=== PATIENT | female | born 1945 | race Caucasian/White ===

== ENCOUNTER 2019-07-08 13:11 | Inpatient (IN) | payer OTHER ==
[~2019-07-08] VITALS: Ht 167.6 cm; Wt 93.3 kg
[2019-07-08] VITALS (21 sets, daily range): BP systolic 81–118; BP diastolic 38–70
[2019-07-08] MEDS ORDERED: LOPRESSOR25 PO (14:11)
[2019-07-08] MEDS ORDERED: SPIRONOLACTONE25 MG PO (14:12)
[2019-07-08] MEDS ORDERED: NORVASC5 MG PO (14:12)
[2019-07-08] MEDS ORDERED: LOSARTAN POTAS100 MG PO (14:13)
[2019-07-08] MEDS ORDERED: ASA81BEC PO (14:14)
[2019-07-08] MEDS ORDERED: LOVASTATIN 20 M20 MG PO (14:15)
[2019-07-08] MEDS ORDERED: POTASSIUM CHLO20 ME2 PO (14:17)
[2019-07-08 14:18] LABS: ABSOLUTE NEUTROPHILS 11.1 thou/uL (1.4-8.2); BASOPHILS 0.5 % (0.0-2.0); EOSINOPHILS 0.3 % (0.0-3.0); LYMPHOCYTES 16.7 % (24.0-44.0); MCH 33.1 pg (26.0-34.0); MCHC 33.6 g/dL (28.0-37.0); MCV 98.5 fL (80.0-100.0); MONOCYTES 6.1 % (1.0-8.0); POLYS 76.4 % (36.0-66.0); RBC 1.98 mil/uL (4.20-5.00); RDW 12.9 % (10.5-14.5); WBC 14.5 thou/uL (4.0-11.0)
[2019-07-08] MEDS ORDERED: WARFARIN SODIUM5 MG PO (14:18)
[2019-07-08] MEDS ORDERED: MEVACOR10 MG PO (14:21)
[2019-07-08 14:22] LABS: HEMATOCRIT 19.5 % (37.0-47.0)
[2019-07-08] MEDS ORDERED: TAMBOCOR 100 M100 M1 PO (14:22)
[2019-07-08 14:23] LABS: HEMOGLOBIN 6.6 gm/dL (12.0-15.0)
[2019-07-08 14:24] LABS: CALCIUM 9.3 mg/dL (8.5-10.1); POTASSIUM 4.7 mmol/L (3.5-5.1)
[2019-07-08 14:31] LABS: ALBUMIN 2.9 g/dL (3.4-5.0); APTT 33.9 Seconds (24.5-32.8); PROTIME 47.5 Seconds (9.3-11.4); TOTAL BILIRUBIN 0.2 mg/dL (<0.1-1.0); TOTAL PROTEIN 5.5 g/dL (6.4-8.2)
[2019-07-08 14:36] LABS: INR 4.6
[2019-07-08 14:47] LABS: LARGE PLATELETS RARE; PLATELET COUNT 142 thou/uL (150-400)
[2019-07-08 22:18] LABS: HEMATOCRIT 21.7 % (37.0-47.0); HEMOGLOBIN 7.3 gm/dL (12.0-15.0)
[2019-07-09] VITALS (31 sets, daily range): BP systolic 80–137; BP diastolic 39–89
[2019-07-09 00:48] LABS: HEMATOCRIT 20.9 % (37.0-47.0); HEMOGLOBIN 7.1 gm/dL (12.0-15.0); MCH 32.9 pg (26.0-34.0); MCV 96.8 fL (80.0-100.0); RBC 2.16 mil/uL (4.20-5.00); RDW 13.4 % (10.5-14.5); WBC 10.7 thou/uL (4.0-11.0)
[2019-07-09 01:12] LABS: PROTIME 14.7 Seconds (9.3-11.4)
[2019-07-09 01:20] LABS: INR 1.4
--- NOTE | 2019-07-09 07:48 | NUR ---
ASSUME CARE 1900. PATIENT/VITALS STABLE. DENIES ANY PAIN. UP WITH STB ASSIST. TOLERATES ACTIVITY WELL. ASSESSMENT CHARTED. PROGREWSSING WELL WITH POC. ONE UNIT BLOOD TRANSFUSED/HGB 7.5. FFP NOT GIVEN BECAUSE VIT K WAS ALREADY GIVEN AND REPEAT INR WAS AT 1.4. HELD AFTER DISCUSSING WITH NON PROFIT JOB TITLES. 1 TARRY STOOL NOTED THROUGH SHIFT. NO DISTTRESS NOTED. PLAN IS FOR POSSIBLE EGD TODAY. WILL CONTINUE TO MONITOR AND FOLLOW WITH POC
--- NOTE | 2019-07-09 11:43 | P ---
[facility] [place] [address] PROCEDURE REPORT Name: DILLON MARTINEZ Room #: 244-P ADM IN M.R.#: [id number] Admission: 07/08/19 Attend Phys: Valeri Garcia Discharge: Date of : 47 Report #: [id number] THIS REPORT FOR: cc: Bello Johnston MD, Michael B. MD McElhinney, Christian C. MD ~ CC: Alber Johnston MD DATE OF SERVICE: 07/09/2019 PROCEDURE PERFORMED: Upper endoscopy. HISTORY OF PRESENT ILLNESS: The patient is a 74-year-old female with recent generalized weakness, diarrhea, black stools, has been on aspirin and Coumadin for history of AFib. INR on admission was 4.6. The patient was given vitamin K in the ER yesterday. INR today is 1.4. Her hemoglobin on admission was 6.6. She received 1 unit of packed cells. Her hemoglobin today is 7.1. The patient also had an elevated BUN of 63 yesterday. She denies any abdominal pain. No hematemesis. No previous history of GI bleed. Reportedly had a colonoscopy in the last 5-7 years that was negative. Plan is for upper endoscopy. DESCRIPTION OF PROCEDURE: The risks and benefits of the procedure were explained to the patient, those risks including but not limited to bleeding, perforation and the risk of sedation. She understood these risks and gave informed consent. Sedation was given using propofol per anesthesia. Next, using a standard Olympus upper endoscope, the scope was placed in the patient's mouth and advanced under direct vision through the esophagus, stomach and into the second portion of the duodenum. The larynx was normal in appearance. The esophagus was normal throughout. The GE junction was normal. A medium to large size hiatal hernia was noted on entering the stomach. There were several Juan Antonio erosions, but no evidence of ulcers or bleeding within the hiatal hernia. In the gastric antrum, there was a mild gastritis. There was a single 4 mm clean white based ulcer. No evidence of a visible vessel. There was no evidence of blood or old blood throughout the exam today. This is a possible recent bleeding site. There were several small erosions also noted. The pylorus was normal and patent. The duodenal bulb, first and second portion were all normal. I advanced the scope as far as possible. No obvious AVMs or blood or ulcerations were noted in the duodenum. At this point, the scope was then withdrawn and the procedure terminated. The patient tolerated the procedure well. IMPRESSION: [facility] [address] [place] [address] PROCEDURE REPORT Name: DILLON MARTINEZ Room #: 244-P [facility] IN M.R.#: [id number] Admission: 07/08/19 Attend Phys: Valeri Garcia Discharge: Date of : 46 Report #: [id number] 1. Antral ulcer with gastritis, suspect this may be the site of recent bleeding. Again, there was no evidence of old blood or visible vessel or bleeding at this time, especially as the patient's INR was supratherapeutic at 4.6. 2. Medium sized to large hiatal hernia. 3. Juan Antonio erosions. No signs of bleeding. RECOMMENDATIONS: Observe the patient and continue to monitor hemoglobin closely. If there are signs of further bleeding, consider a nuclear tagged bleeding scan. We will continue to hold aspirin and Coumadin at this time. We will also check stool for H. pylori antigen. Thank you for allowing me to participate in her care. <ELECTRONICALLY SIGNED> By: Alber Garcia MD 07/09/19 1143 1014 1136 Alber Garcia MD /nt
--- NOTE | 2019-07-09 11:43 | HC ---
[facility] [place] [address] CONSULTATION Name: DILLON MARTINEZ Room #: 244-P [facility] IN M.R.#: [id number] Admission: 07/08/19 Attend Phys: Valeri Garcia Discharge: Date of : 46 Report #: [id number] THIS REPORT FOR: cc: Bello Johnston MD, Michael B. MD McElhinney, Christian C. MD ~ CC: Alber Johnston MD DATE OF SERVICE: 07/09/2019 HISTORY OF PRESENT ILLNESS: The patient is a 74-year-old female began noticing diarrhea several days ago, black stools and over the last 2-3 days, she is on aspirin and Coumadin for history of AFib. No previous history of GI bleed. No previous history of upper endoscopy. Last colonoscopy was approximately 5-7 years ago and reportedly negative. She denies any abdominal pain, but has noticed some increased belching and gas. She has been taking Gas-X on a p.r.n. basis. Denies any heartburn symptoms or dysphagia. She does not take antacids on a regular basis. No nausea or vomiting. No fevers or chills. No cough recently. She was feeling weak in general, especially walking upstairs. On admission, the patient had a hemoglobin of 6.6. Her INR on admission was 4.6. In the Emergency Room, she was hypotensive. She was given IV fluids. She was given vitamin K and the patient received 1 unit of packed red blood cells yesterday. Her hemoglobin after that was 7.3 and 7.1 today. She currently denies any chest pain or shortness of breath. PAST MEDICAL HISTORY: Atrial fibrillation, hypertension. MEDICATIONS ON ADMISSION: Metoprolol, Norvasc, spironolactone, losartan, potassium chloride, Coumadin 5 mg, Mevacor, flecainide, aspirin 81 mg. ALLERGIES: To SULFA. FAMILY HISTORY: Negative for colon cancer. SOCIAL HISTORY: She denies any tobacco or alcohol use. REVIEW OF SYSTEMS: As per HPI. PHYSICAL EXAMINATION: VITAL SIGNS: Temperature is 36.9, pulse 86, blood pressure 111/55, respiratory rate is 15. GENERAL: She is alert and oriented x 3, in no acute distress. [address] [address] CONSULTATION Name: DILLON MARTINEZ Room #: 244-P [facility] IN M.R.#: [id number] Admission: 07/08/19 Attend Phys: Valeri Garcia Discharge: Date of : 46 Report #: [id number] HEENT: Sclerae nonicteric. Oropharynx clear. NECK: Supple, without lymphadenopathy. CARDIOVASCULAR: Regular rate and rhythm. CHEST: Clear to auscultation bilaterally. ABDOMEN: Soft. She is nontender, nondistended, normoactive bowel sounds. EXTREMITIES: No cyanosis, clubbing or edema. LABORATORY DATA: WBC 10.7; hemoglobin is 7.1, that is after 1 unit of packed cells yesterday; platelet count is 132. INR today is 1.4. Again, the patient was given vitamin K yesterday in the Emergency Room. Electrolytes, this was yesterday, sodium 131, potassium 4.7, chloride 101, bicarbonate 22, BUN 63, creatinine 1.0, magnesium 1.6, AST 18, ALT 21, alkaline phosphatase 41, total protein 5.5, albumin 2.9. ASSESSMENT AND PLAN: Anemia, gastrointestinal bleed. The patient with melanotic type stools recently. She has been on aspirin and Coumadin. INR was over 4 on admission, now 1.4 at this time. Would recommend proceeding with an upper endoscopy today. Continue PPI therapy and monitoring hemoglobin closely. I will make further recommendations after endoscopy. Thank you for allowing me to participate in her care. <ELECTRONICALLY SIGNED> By: Alber Garcia MD 07/09/19 1143 1010 1132 Alber Garcia MD /nt
[2019-07-09 20:45] LABS: HEMOGLOBIN 6.6 gm/dL (12.0-15.0)
[2019-07-09 20:46] LABS: HEMATOCRIT 19.6 % (37.0-47.0)
[2019-07-10] VITALS (13 sets, daily range): BP systolic 87–137; BP diastolic 35–80
[2019-07-10 03:41] LABS: HEMATOCRIT 21.8 % (37.0-47.0); HEMOGLOBIN 7.5 gm/dL (12.0-15.0); MCH 33.1 pg (26.0-34.0); MCHC 34.5 g/dL (28.0-37.0); MCV 96.1 fL (80.0-100.0); RBC 2.27 mil/uL (4.20-5.00); RDW 13.2 % (10.5-14.5); WBC 12.5 thou/uL (4.0-11.0)
--- NOTE | 2019-07-10 05:01 | NUR ---
SLEPT PART OF SHIFT. UP TO COMODE WITH STANDBY ASSIST. STATES IS WEAK BUT NOT DIZZY ANY MORE. HGB 6.6 LAST NOC AND RECIEVED 1 UNIT PRBC, HGB NOW 7.5. HAD HEADACHE AND NAUSEA WITH MEDICATIONS GIVEN WITH NOTED RELIEF. VSS. PT WITH HISTORY AFIB AND WENT INTO AFIB AT 2315. ORDERS FOR EXTRA DOSE FLECANIDE GIVEN PATIENT CONVERTED BACK TO SR/ST WITH 1AVB. PROGRESSING SLOWLY TOWARDS DISCHARGE GOALS. WORKING ON GOALS AND PLAN OF CARE FOR NOC. CONTINUE TO ASSES CLOSELY.
--- NOTE | 2019-07-10 08:16 | NUR ---
PT TRANSFERED TO ROOM 212 VIA WHEEL CHAIR. REPORT GIVEN TO RAOUL RODRIGES TO ASSUME CARE. TRANSFERED WITH ALL BELONGINGS. NO ISSUES OR CONERNS NOTED AT THIS TIME
--- NOTE | 2019-07-10 13:01 | EKG ---
[facility] [place] [address] ELECTROCARDIOGRAM REPORT Name: DILLON MARTINEZ Room #: 212- ADM IN M.R.#: [id number] Admission: 07/08/19 Attend Phys: Valeri Garcia Discharge: Date of : 46 Report #: [id number] THIS REPORT FOR: cc: Bello Johnston MD, Michael B. MD Couchonnal, Luis F. MD ~ THIS REPORT FOR: //name// [facility] ED Test Date: 2019-07-08 Test Time: 13:41:26 Pat Name: DILLON MARTINEZ Department: Room: [facility] Gender: F Behavioral Health Associate: BENITO : 1945 Requested By: Loly Cook Order Number: [id number] : Thuan Dang Measurements Intervals [place] Rate: 76 P: 20 UT: 177 QRS: -1 QRSD: 92 T: 12 QT: 403 QTc: 454 Interpretive Statements Sinus rhythm Atrial premature complexes Nonspecific T abnormalities, anterior leads Compared to ECG 10/20/2006 07:41:43 Atrial premature complex(es) now present T-wave abnormality now present First degree AV block no longer present Electronically Signed On 07-10-2019 12:59:51 CDT by Thuan Dang [email or web address] <ELECTRONICALLY SIGNED> By: Thuan Dang MD 07/10/19 1259 1341 1341 Thuan Dang MD /EPI
--- NOTE | 2019-07-10 17:14 | NUR ---
PT CARE ASSUMED APPROX 0830. ASSESSMENTS CHARTED. DENIES PAIN AND SOA. VSS. UP WITH STEADY GAIT. DENIES QUESTIONS OR CONCERNS REGARDING POC. TOLERATING POC. NO DISTRESS NOTED.
[2019-07-10 21:53] LABS: HEMATOCRIT 20.9 % (37.0-47.0); HEMOGLOBIN 7.1 gm/dL (12.0-15.0)
[2019-07-11 03:16] VITALS: BP 130/65
[2019-07-11 05:56] LABS: HEMOGLOBIN 7.1 gm/dL (12.0-15.0); MCH 33.5 pg (26.0-34.0); MCV 98.7 fL (80.0-100.0); RBC 2.13 mil/uL (4.20-5.00); RDW 13.7 % (10.5-14.5); WBC 8.6 thou/uL (4.0-11.0)
[2019-07-11 06:17] LABS: INR 1.1; PROTIME 10.8 Seconds (9.3-11.4)
--- NOTE | 2019-07-11 07:22 | NUR ---
ASSESSMENTS CHARTED, MEDS CHARTED GIVEN. PATIENT RESTING IN BED DURING SHIFT. ALERT AND ORIENTED, SINUS RHYTHM WITH PAC'S. 2/2 PULSES, NO EDEMA, LUNGS ARE CLEAR ON ROOM AIR. ON REGULAR DIET. NORMALLY HAS REGULAR BOWEL MOVEMENTS, BUT HAS TRIED SEVERAL TIMES WHILE HERE WITHOUT SUCCESS. UP AT BELLE IN ROOM. NO SKIN ISSUES, C/O HEADACHE AND NAUSEA DURING SHIFT. PLAN IS TO POSSIBLY GO HOME TODAY AND HAVE A COLONOSCOPY AN OUTPATIENT IF LAB HGB IS MAINTAINED. FALL PRECAUTIONS IN PLACE DURING SHIFT.
[2019-07-11 08:00] VITALS: BP 95/62
[2019-07-11] MEDS ORDERED: CARAFATE 1 GM TA1 G1 PO (08:29)
[2019-07-11] MEDS ORDERED: PROTONIX 20 MG20 M1 PO (08:29)
[2019-07-11 13:00] VITALS: BP 103/51
--- NOTE | 2019-07-11 15:05 | NUR ---
ASSUMED CARE AT SHIFT CHANGE, ASSESSMENT DOCUMENTED. MEDS NOT GIVEN FOR LOW PULS/BP THIS AM. C/O HEADACHE, MEDICATED NEEDED AND PATIENT REPORT RELIEFE. AND WILL CONTIUE WITH POC.
[2019-07-11 16:00] VITALS: BP 123/51
[2019-07-11 20:19] VITALS: BP 136/77
--- NOTE | 2019-07-11 21:22 | NUR ---
CARE TAKEN OVER AT 1900. PT ASSESSED AT 1999, VSS, MEDS GIVEN, PT COMPLETED HER BOWEL PREP FOR COLONOSCOPY TOMORROW. ASKED QUESTIONS ABOUT THE PROCEDURE AND VERBALIZED UNDERSTANDING. WILL TRANSFER TO ROOM 443 WHEN NURSE IS AVAILABLE.
[2019-07-11 22:50] VITALS: BP 126/55
[2019-07-12 04:27] VITALS: BP 125/70
--- NOTE | 2019-07-12 05:04 | NUR ---
Pt transferred from @2245 via WC. A/OX4, VSS. Pt's up ad murray w/o problems encouraged to call for help as needed. Pt completed bowel prep before transfer and still having light yellow loose stools at this time. C/o of a headache, medicated with Tylenol with relief reported. Pt has been NPO since midnight. No bleeding reported. IVF infusing via RFA w/o problems. Pt does have a cough, reports yellow phlegm at times but not observed. Call light/personal items placed within reach, resting w/o distress will continue to monitor pt.
[2019-07-12 07:23] VITALS: BP 118/60
[2019-07-12 10:40] VITALS: BP 113/65
[2019-07-12 10:53] LABS: CALCIUM 8.4 mg/dL (8.5-10.1); CREATININE 0.6 mg/dL (0.6-1.0); POTASSIUM 3.3 mmol/L (3.5-5.1)
[2019-07-12 12:51] VITALS: BP 113/65
--- NOTE | 2019-07-12 13:49 | NUR ---
Assumed care of pt at 0700. Pt a&ox4. Denies pain. Had colonoscopy procedure. Pt discharging home. No complaints. Vital signs stable.
--- NOTE | 2019-07-13 08:27 | P ---
[facility] [address] [place] [address] PROCEDURE REPORT Name: DILLON MARTINEZ Room #: 443-P [facility] IN M.R.#: [id number] Admission: 07/08/19 Attend Phys: Valeri Garcia Discharge: 07/12/19 Date of : 46 Report #: [id number] THIS REPORT FOR: cc: Bello Johnston MD, Michael B. MD Thesing, John A. MD ~ CC: Alber Johnston INPATIENT COLONOSCOPY REPORT BRIEF HISTORY: The patient is a 74-year-old woman who was admitted to [facility] with evidence of GI bleeding. She had been on anticoagulation. Source of bleeding is not certain. PREOPERATIVE DIAGNOSIS: Gastrointestinal bleeding, uncertain etiology. POSTOPERATIVE DIAGNOSIS: Normal colonoscopy. MEDICATIONS: Deep sedation with propofol per anesthesia. SPECIMEN: None. ESTIMATED BLOOD LOSS: None. PROCEDURE: Colonoscopy to cecum and terminal ileum. FINDINGS: Prior to propofol sedation, procedure of colonoscopy was discussed with the patient as well as potential risks, benefits, and complications. She indicates she understands and desires to proceed. DESCRIPTION OF PROCEDURE: With the patient in left lateral decubitus position, digital examination was completed. Her vaginal pessary was palpable. No other abnormalities were noted. Subsequently, the Olympus video colonoscope was introduced into the rectum, advanced under direct vision to the cecum. This was done with minimal difficulty. The cecum was identified by the ileocecal valve and the appendiceal orifice. I was able to visualize the distal segment of terminal ileum, which was inspected and noted to be unremarkable. At that point, the scope was slowly withdrawn and careful circumferential views were obtained. The prep was good, the mucosa within normal limits, normal vascular pattern, normal light reflex. As we withdrew the scope, no bleeding sites were identified. No blood was seen in her colon. She had a normal endoscopic examination of her entire colon. Vascular ectasias were not seen. Diverticular disease was not seen. Neoplastic lesions were not seen. No abnormalities were identified in her colon today. Upon retroflexion, no abnormalities were seen. Scope was withdrawn. The patient tolerated the procedure well. [facility] [address] [place] [address] PROCEDURE REPORT Name: DILLON MARTINEZ Room #: 443-P [facility] IN M.R.#: [id number] Admission: 07/08/19 Attend Phys: Valeri Garcia Discharge: 07/12/19 Date of : 46 Report #: [id number] DISPOSITION: Source of bleeding was not identified. She did have some Juan Antonio erosions on her upper endoscopy, which may have been the source of blood loss. She also had a supratherapeutic INR on her warfarin. We will discuss further with the patient. Discharge at this point would be reasonable. M2 capsule study may be reasonable as well. Again, we will discuss further with the patient. Also, in view of negative exam, I suggest followup colon exam in 10 years. <ELECTRONICALLY SIGNED> By: Mike Hanks MD 07/13/19 0827 1006 1134 Mike Hanks MD /nt
== END 2019-07-12 13:52 | disposition home or self-care (01) | DRG 813 ==
LOC: ER 13:11 → EROBS 15:37 → 2N 15:37 → ICU 16:37 → 2N 07-10 09:39 → 4S 07-11 23:00
PROVIDERS: Specialist; Student in an Organized Health Care Education/Training Program; ADMIT Hospitalist
PROC: 30233N1 Transfusion of Nonautologous Red Blood Cells into Peripheral Vein, Percutaneous Approach (ICD-10-PCS; principal; 2019-07-09)
PROC: 0DJ08ZZ Inspection of Upper Intestinal Tract, Via Natural or Artificial Opening Endoscopic (ICD-10-PCS; principal; 2019-07-09)
PROC: 0DJD8ZZ Inspection of Lower Intestinal Tract, Via Natural or Artificial Opening Endoscopic (ICD-10-PCS; principal; 2019-07-09)
DX: D68.32 Hemorrhagic disorder due to extrinsic circulating anticoagulants (principal); K29.01 Acute gastritis with bleeding; R57.8 Other shock; K26.4 Chronic or unspecified duodenal ulcer with hemorrhage; D62 Acute posthemorrhagic anemia; D68.9 Coagulation defect, unspecified; I10 Essential (primary) hypertension; I95.9 Hypotension, unspecified; K44.9 Diaphragmatic hernia without obstruction or gangrene; I48.91 Unspecified atrial fibrillation; Z79.01 Long term (current) use of anticoagulants; Z79.899 Other long term (current) drug therapy; Z79.82 Long term (current) use of aspirin; Z88.2 Allergy status to sulfonamides; T45.515A Adverse effect of anticoagulants, initial encounter; Y92.89 Other specified places as the place of occurrence of the external cause
CPT/HCPCS: 10078; 10081; 10102; 62110; 62900; 70005; 85076

== ENCOUNTER 2020-05-29 17:52 | Inpatient (IN) | payer OTHER ==
[~2020-05-29] VITALS: Ht 167.6 cm; Wt 91.0 kg
[~2020-05-29 17:52] MED LIST: ASA81BEC PO; CARAFATE 1 GM TA1 G1 PO; LOPRESSOR25 PO; LOSARTAN POTAS100 MG PO; LOVASTATIN 20 M20 MG PO; MEVACOR10 MG PO; NORVASC5 MG PO; POTASSIUM CHLO20 ME2 PO; PROTONIX 20 MG20 M1 PO; SPIRONOLACTONE25 MG PO; TAMBOCOR 100 M100 M1 PO; WARFARIN SODIUM5 MG PO
[2020-05-29 17:53] VITALS: BP 117/55
[2020-05-29 18:27] LABS: ABSOLUTE NEUTROPHILS 3.9 thou/uL (1.4-8.2); BASOPHILS 0.8 % (0.0-2.0); EOSINOPHILS 2.2 % (0.0-3.0); HEMATOCRIT 40.2 % (37.0-47.0); HEMOGLOBIN 13.4 gm/dL (12.0-15.0); LYMPHOCYTES 25.5 % (24.0-44.0); MCH 32.5 pg (26.0-34.0); MCHC 33.2 g/dL (28.0-37.0); MCV 97.7 fL (80.0-100.0); POLYS 61.5 % (36.0-66.0); RBC 4.12 mil/uL (4.20-5.00); RDW 12.7 % (10.5-14.5); WBC 6.3 thou/uL (4.0-11.0)
[2020-05-29 18:45] LABS: CALCIUM 9.2 mg/dL (8.5-10.1); CREATININE 0.8 mg/dL (0.6-1.0); POTASSIUM 4.4 mmol/L (3.5-5.1)
[2020-05-29 18:46] LABS: INR 4.2; PROTIME 43.6 Seconds (9.3-11.4)
[2020-05-29 18:50] LABS: ALBUMIN 3.7 g/dL (3.4-5.0); TOTAL BILIRUBIN 0.2 mg/dL (0.2-1.0); TOTAL PROTEIN 7.2 g/dL (6.4-8.2)
[2020-05-29 19:11] LABS: PLATELET COUNT 185 thou/uL (150-400)
[2020-05-29 19:50] VITALS: BP 127/67
[2020-05-29 20:43] VITALS: BP 114/67
[2020-05-29 21:05] VITALS: BP 118/63
[2020-05-29] MEDS ORDERED: WARFARIN SODIUM5 MG PO (22:30)
[2020-05-29] MEDS ORDERED: WARFARIN SODIU2.5 MG PO (22:31)
--- NOTE | 2020-05-30 00:29 | NUR ---
Pt admitted from ED at 2100 with GIB. A/OX4,VSS. Denies pain on assessment. Up ad murray in room,fall safety reinforced and pt agrees to call for help as needed. Denies N/V,pt is belching. Just had a large loose BM black/green in color. Pt's NPO from midnight. IVF infusing,will continue to monitor pt.
[2020-05-30 04:00] VITALS: BP 123/64
[2020-05-30 05:07] LABS: HEMATOCRIT 39.5 % (37.0-47.0); HEMOGLOBIN 13.1 gm/dL (12.0-15.0); MCH 32.7 pg (26.0-34.0); MCHC 33.2 g/dL (28.0-37.0); MCV 98.6 fL (80.0-100.0); RBC 4.01 mil/uL (4.20-5.00); RDW 12.6 % (10.5-14.5); WBC 6.3 thou/uL (4.0-11.0)
[2020-05-30 05:10] LABS: CALCIUM 9.4 mg/dL (8.5-10.1); CREATININE 0.9 mg/dL (0.6-1.0); POTASSIUM 4.5 mmol/L (3.5-5.1)
[2020-05-30 06:10] VITALS: BP 116/68
--- NOTE | 2020-05-30 07:17 | EKG ---
[place] [address] [facility] [place] [address] ELECTROCARDIOGRAM REPORT Name: DILLON MARTINEZ Room #: 454-P ADM IN M.R.#: [id number] Admission: 05/29/20 Attend Phys: Vel Leonardo MD Discharge: Date of : 46 Report #: [id number] [facility] ED Test Date: 2020-05-29 Test Time: 18:26:34 Pat Name: DILLON MARTINEZ Department: Room: 454 Gender: F Personal Assistant: Dawson : 1945 Requested By: Alvarado Justice Order Number: [id number] MD: Norberto Cortez Measurements Intervals [place] Rate: 56 P: 18 [place]: 221 QRS: -16 QRSD: 99 T: 6 QT: 427 QTc: 413 Interpretive Statements Sinus rhythm Atrial premature complexes Prolonged WA interval Abnormal R-wave progression, early transition Probable left ventricular hypertrophy Baseline wander in lead(s) III Compared to ECG 07/08/2019 13:41:26 First degree AV block now present T-wave abnormality no longer present Electronically Signed On 05-30-2020 7:17:32 BOOKKEEPING SERVICE SALES AGENT by Norberto Cortez [email or web address] <ELECTRONICALLY SIGNED> By: Norberto Cortez MD, FAC 05/30/20 0717 1826 182 Norberto Cortez MD, [facility] /EPI
[2020-05-30 07:32] VITALS: BP 119/54
--- NOTE | 2020-05-30 12:21 | NUR ---
PT ADMITTED RELATED TO GIB. CM REVIEWED CHART AND SPOKE WITH CARE TEAM. CM CALLED AND SPOKE WITH PT OVER THE PHONE THIS DAY. PT APPEARED TO BE A&O X4. CM ROLE INTRODUCED. PT INDICATED SHE RESIDES IN AN APARTMENT WITH HER DTRS AND TWO GRANDDAUGHTERS. PT INDICATED THERE ARE THREE FLIGHTS OF STEPS TO ENTER AND THERE ARE NO STEPS INSIDE. 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 PT INDICATED SHE PLANS TO RETURN HOME ONCE MEDICALLY STABLE. CM FOLLOWING REGARDING DC PLANNING.
[2020-05-30 15:10] VITALS: BP 132/59
--- NOTE | 2020-05-30 18:36 | NUR ---
Assumed pt care this am, received NPO. Seen by hospitalist, was initially planned for FFP consents signed. After being seen by GI, NATI dc, diet advanced to clear liquids. Pt is steady on her gait and up ad murray, able to go to the toilet. No BM was noted today, very minimal discomfort was stated in the abdiminla area. Flatus and belching have been noted for this shift. For EGD tomorrow, to be NPO post midnight consent on the chart. POC followed with no signs or verbalizations of distress noted. Home medications restarted.
[2020-05-30 19:30] VITALS: BP 123/70
--- NOTE | 2020-05-31 04:21 | NUR ---
Assumed pt care at 1900. A/OX4,VSS. C/o discomfort to abd but better after eating/Carafate. Did have a small formed black tarry stool. Up ad murray in room. Encouraged to call for help as needed. Pt has been NPO since midnigt for EGD today IVF/Protonix infusing without any problems. Pt resting quietly at this time w/o any distress noted,will continue to monitor pt.
[2020-05-31 05:10] LABS: ABSOLUTE NEUTROPHILS 3.8 thou/uL (1.4-8.2); BASOPHILS 0.6 % (0.0-2.0); EOSINOPHILS 2.7 % (0.0-3.0); HEMATOCRIT 38.3 % (37.0-47.0); HEMOGLOBIN 12.7 gm/dL (12.0-15.0); LYMPHOCYTES 28.2 % (24.0-44.0); MCH 32.4 pg (26.0-34.0); MCHC 33.2 g/dL (28.0-37.0); MCV 97.7 fL (80.0-100.0); MONOCYTES 10.7 % (1.0-8.0); PLATELET COUNT 168 thou/uL (150-400); POLYS 57.8 % (36.0-66.0); RBC 3.92 mil/uL (4.20-5.00); RDW 12.6 % (10.5-14.5); WBC 6.5 thou/uL (4.0-11.0)
[2020-05-31 05:32] LABS: INR 3.3; PROTIME 34.9 Seconds (9.3-11.4)
[2020-05-31 07:24] VITALS: BP 138/58
--- NOTE | 2020-05-31 12:36 | NUR ---
Note Given: Y Facility List Provided:Y Facility Blue: None chosen at this time Isaura Moralez NP discussed BPCI with patient today
--- NOTE | 2020-05-31 14:06 | NUR ---
CARE TEAM INDICATED THAT PT IS HAVING AN EGD THIS DAY. CM FOLLOWING REGARDING DC PLANNING.
--- NOTE | 2020-05-31 14:19 | NUR ---
ASSUMED CARE OF PATIENT AT 0700. ASSESSMENT CHARTED. MEDICATIONS HELD PER NPO STATUS. PATIENT IS A&OX4 AND MAKES NEEDS KNOWN. PATIENT VOICING DISCOMFORT ON LLQ. PATIENT WENT FOR EGD AT 1200 THIS DAY; GASTRIC ULCER/GASTRITIS FOUND AND BIOPSIED PER GI. PATIENT INSTRUCTED TO NOT DRIVE HOME FOR AT LEAST 12HRS POST PROCEDURE (0030 05/31/20). GI DID CLEAR PATIENT TO GO HOME POST PROCEDURE HOWEVER PATIENT DOES NOT HAVE TRANSPORTATION. IV PROTONIX AND NS INFUISNG ON R FA W NO ISSUES. BACK ON REG. DIET. PATIENT COUGHING S/T PROCEDURE BUT VOICING NO FURTHER NEEDS AT THIS TIME. WILL CONTINUE TO MONITOR AND FOLLOW PLAN OF CARE
[2020-05-31 16:01] VITALS: BP 114/56
[2020-05-31 19:41] VITALS: BP 115/53
--- NOTE | 2020-05-31 23:01 | NUR ---
ASSESSED AT START OF SHIFT. PT A&0X4. DENIES PAIN, N/V. UP AD BELLE TO THE BATHROOM. PER REPORT NO BLOODY STOOLS NOTED TODAY. PT HAD EGD TODAY. IV INTACT AND PROTONIX INFUSING. FALL EDUCATION PROVIDED AND CALL LIGHT AT REACH WILL CONT TO MONITOR.
[2020-06-01 08:11] VITALS: BP 116/84
[2020-06-01 08:42] LABS: INR 2.6
--- NOTE | 2020-06-01 11:23 | NUR ---
ASSUMED CARE OF PATIENT AT 0700. ASSESSMENT CHARTED. MEDICATIONS ADMINISTERED PER EMAR. VSS. PATIENT REMAINS ALERT AND ORIENTED AND VERY PLEASANT. PATIENT IS MEDICALLY STABLE. HAD A BM LAST NIGHT W NO SIGNS OF ACTIVE GIB PER NOC RN. REMAINS INDEPENDENT W STEADY GAIT. ATE 100% OF BKFST THIS DAY AND TOLERATED W NO ISSUES. DR. JAUREGUI SAW PATIENT AND PROVIDED EDUCATION/REASSURANCE OF DIOGNOSIS. HOSPITALIST AWARE OF PATIENT STATUS AND WORKING ON DISCHARGE. WILL CONTINUE TO MONITOR AND AWAIT DISCHARGE ORDERS.
--- NOTE | 2020-06-01 11:44 | NUR ---
PT HAD EGD YESTERDAY. CARE TEAM INDICATED THAT PT IS MEDICALLY STABLE TO DC HOME THIS DAY. CM SPOKE WITH PT AND SHE INDICATED THAT SHE DOESN'T FEEL LIKE SHE NEEDS HH SERVICES UPON DC. PT PREFERS TO DISCHARGE HOME TO SELF CARE. PT TO DRIVE HERSELF HOME. NO OTHER CM INTERVETNION INDICATED. CASE CLOSED.
[2020-06-01] MEDS ORDERED: JANTOVEN3 MG PO (12:02)
[2020-06-01] MEDS ORDERED: PROTONIX 20 MG20 M1 PO (12:02)
[2020-06-01] MEDS ORDERED: ACETAMINOPHEN325 M1 PO (12:02)
[2020-06-01 12:31] VITALS: BP 116/84
--- NOTE | 2020-06-04 17:06 | PATH ---
[facility] [address] [place] [address] PATHOLOGY RPT PROCEDURE Name: DILLON MARTINEZ Room #: 454-P DIS IN M.R.#: [id number] Admission: 05/29/20 Date of : 47 Discharge: 06/01/20 Report #: [id number] Path Case #: [id number] [facility] Accession Number: [id number] . 01 Material submitted: . gastrointestinal site - RANDOM GASTRIC BIOPSY R/O H.PYLORI . 01 Clinical history: . . GASTRIC ULCER,HIATEL HERNIA . 02 Diagnosis: Gastric mucosa, random gastric, endoscopic biopsy: - Mild chronic active gastritis. - Negative for intestinal metaplasia or atrophy. - Negative for Helicobacter pylori (properly-controlled immunohistochemical stain performed). . (IUV:mml; 06/04/2020) QLM 06/04/2020 1254 Local . 02 Electronically signed: . Mildred Macdonald MD, Pathologist NPI- [id number] . 01 Gross description: . The specimen is received in formalin, labeled "Dillon Martinez, kelly gastric biopsy, R/O H. pylori". Received are five segments of pale meadows tissue ranging in size from 0.3-0.5 cm in maximum dimensions. The specimen is submitted entirely in cassette A1. (CAA; 06/01/2020) QAC/QAC 06/01/2020 1137 Local . 02 Pathologist provided ICD-10: K29.50 . 02 CPT . 851615, X22245 Specimen Comment: A courtesy copy of this report has been sent to [phone] Specimen Comment: Report sent to , / Performed at: 01 [facility] [address] [id number] MD Rolando Cannon MD Phone: [phone] Performed at: [address] [id number] [address] [address] PATHOLOGY RPT PROCEDURE Name: DILLON MARTINEZ Room #: 454-P DIS IN M.R.#: [id number] Admission: 05/29/20 Date of : 47 Discharge: 06/01/20 Report #: [id number] Path Case #: [id number] MD Mildred Macdonald MD Phone: [phone]
== END 2020-06-01 13:07 | disposition home or self-care (01) | DRG 378 ==
LOC: ER 17:52 → EROBS 19:42 → 4W 19:42
PROVIDERS: Emergency Medicine; Nurse Practitioner; Nurse Practitioner Family; ADMIT Internal Medicine; ATTEND Internal Medicine
PROC: 0DB78ZX Excision of Stomach, Pylorus, Via Natural or Artificial Opening Endoscopic, Diagnostic (ICD-10-PCS; principal; 2020-05-31)
DX: K25.4 Chronic or unspecified gastric ulcer with hemorrhage (principal); I48.20 Chronic atrial fibrillation, unspecified; D68.9 Coagulation defect, unspecified; Z20.822 Contact with and (suspected) exposure to COVID-19; I10 Essential (primary) hypertension; I48.0 Paroxysmal atrial fibrillation; E66.01 Morbid (severe) obesity due to excess calories; F32.9 Major depressive disorder, single episode, unspecified; K44.9 Diaphragmatic hernia without obstruction or gangrene; Z88.2 Allergy status to sulfonamides; Z87.11 Personal history of peptic ulcer disease; Z68.32 Body mass index [BMI] 32.0-32.9, adult; Z79.01 Long term (current) use of anticoagulants
CPT/HCPCS: 10040; 62110; 62900; 70005

== ENCOUNTER → 2020-09-10 | Outpatient (CLI) | payer OTHER ==
[~2020-09-10] VITALS: Ht 170.2 cm; Wt 89.4 kg
[~2020-09-10] MED LIST changes: +ACETAMINOPHEN325 M1 PO; +JANTOVEN3 MG PO; +METOPROLOL TART25 MG PO; +WARFARIN SODIU2.5 MG PO; +XARELTO20 MG PO
== END | disposition home or self-care (01) ==
LOC: GI 08:53
PROVIDERS: ATTEND Internal Medicine Gastroenterology
DX: Z87.11 Personal history of peptic ulcer disease (principal); K29.70 Gastritis, unspecified, without bleeding; K44.9 Diaphragmatic hernia without obstruction or gangrene; I10 Essential (primary) hypertension; I48.91 Unspecified atrial fibrillation; E78.00 Pure hypercholesterolemia, unspecified; K21.9 Gastro-esophageal reflux disease without esophagitis; Z98.890 Other specified postprocedural states; Z79.899 Other long term (current) drug therapy; Z98.41 Cataract extraction status, right eye; Z98.42 Cataract extraction status, left eye; Z79.01 Long term (current) use of anticoagulants
CPT/HCPCS: 62110; 62900

== ENCOUNTER 2021-02-18 22:13 | Emergency (ER) | payer OTHER ==
[~2021-02-18] VITALS: Ht 165.1 cm; Wt 84.8 kg
[2021-02-19 00:37] VITALS: BP 109/64
== END 2021-02-19 00:37 | disposition home or self-care (01) ==
LOC: ER 22:13
DX: S80.02XA Contusion of left knee, initial encounter (principal); I10 Essential (primary) hypertension; I48.91 Unspecified atrial fibrillation; E78.5 Hyperlipidemia, unspecified; K21.9 Gastro-esophageal reflux disease without esophagitis; Z79.899 Other long term (current) drug therapy; Z88.2 Allergy status to sulfonamides; W22.03XA Walked into furniture, initial encounter; Y93.89 Activity, other specified; Y92.89 Other specified places as the place of occurrence of the external cause; Y99.8 Other external cause status

== ENCOUNTER 2021-04-03 05:17 | Emergency (ER) | payer OTHER ==
[~2021-04-03] VITALS: Ht 167.6 cm; Wt 86.2 kg
[2021-04-03 05:27] VITALS: BP 130/69
[2021-04-03 06:06] LABS: ABSOLUTE NEUTROPHILS 2.7 thou/uL (1.4-8.2); BASOPHILS 0.4 % (0.0-2.0); EOSINOPHILS 0.1 % (0.0-3.0); HEMATOCRIT 39.9 % (37.0-47.0); HEMOGLOBIN 13.6 gm/dL (12.0-15.0); MCH 33.4 pg (26.0-34.0); MCHC 34.1 g/dL (28.0-37.0); MCV 97.9 fL (80.0-100.0); MONOCYTES 22.4 % (1.0-8.0); PLATELET COUNT 192 thou/uL (150-400); POLYS 58.1 % (36.0-66.0); RBC 4.08 mil/uL (4.20-5.00); RDW 12.6 % (10.5-14.5); WBC 4.7 thou/uL (4.0-11.0)
[2021-04-03 06:08] LABS: CALCIUM 9.2 mg/dL (8.5-10.1); CREATININE 0.7 mg/dL (0.6-1.0); POTASSIUM 4.5 mmol/L (3.5-5.1)
[2021-04-03 06:36] LABS: ALBUMIN 3.8 g/dL (3.4-5.0); DIRECT BILIRUBIN < 0.1 mg/dL (<0.1-0.2); LIPASE 93 U/L (73-393); SGOT 25 U/L (15-37); SGPT 28 U/L (30-65); TOTAL BILIRUBIN 0.3 mg/dL (0.2-1.0); TOTAL PROTEIN 7.1 g/dL (6.4-8.2)
== END 2021-04-03 07:17 | disposition home or self-care (01) ==
LOC: ER 05:17
PROVIDERS: Student in an Organized Health Care Education/Training Program
DX: U07.1 COVID-19 (principal); I10 Essential (primary) hypertension; E78.5 Hyperlipidemia, unspecified; K21.9 Gastro-esophageal reflux disease without esophagitis; Z90.89 Acquired absence of other organs; Z79.899 Other long term (current) drug therapy; Z88.2 Allergy status to sulfonamides